=== PATIENT | female | born 1985 | race African-American/Black ===

== ENCOUNTER 2020-06-04 19:16 | Emergency (ER) | payer MEDICAID ==
[2020-06-04] MEDS ORDERED: Ketorolac Tromethamine 30 MG/ML VIAL ONE (20:07)
[2020-06-04] MEDS ORDERED: Dexamethasone 10 MG/ML VIAL ONE (20:14)
== END 2020-06-04 20:40 | disposition home or self-care (01) ==
LOC: ERS 19:16
DX: M54.40 Lumbago with sciatica, unspecified side (principal); G89.29 Other chronic pain
CPT/HCPCS: 96372; 99281; J1100; J1885